=== PATIENT | male | born 2000 | race African-American/Black ===

== ENCOUNTER 2019-03-31 20:26 | Emergency (ER) | payer BC, SELFPAY ==
[2019-03-31 20:56] LABS: Absolute Lymphocytes (CBC) 2.9 K/uL (0.7-4.9); Absolute Monocytes 0.5 K/uL (0.1-1.3); Absolute Neutrophil 3.3 K/uL (1.8-8.0); Basophils % 0.8 % (0-1.3); Eosinophils % 0.9 % (0-4.4); Hematocrit 46.6 % (39.6-49.0); Lymphocytes % 41.9 % (15.3-44.8); MPV 9.5 fL (7.6-11.3); Monocytes % 7.8 % (3.3-12.3); RBC Red Blood Cell Count 5.27 M/uL (4.33-5.43)
[2019-03-31 21:08] LABS: BUN Blood Urea Nitrogen 9 mg/dL (7-18); Bicarbonate 21 mmol/L (21-32); Glucose Level 122 mg/dL (74-106); Potassium 3.4 mmol/L (3.5-5.1); Sodium Level 138 mmol/L (136-145)
[2019-03-31] MEDS ORDERED: HYDROCODONE/APAP 10/325 TAB ONE (21:57)
[2019-03-31] MEDS ORDERED: TETANUS & DIPHTHERIA TOX,ADULT 0.5 ML VIAL ONE (21:57)
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
[2019-04-01] MEDS ORDERED: FENTANYL CITR 100 MCG/2 ML ONE (00:46)
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
== END 2019-03-31 23:01 | disposition home or self-care (01) ==
LOC: ER 20:26
DX: S71.131A Puncture wound without foreign body, right thigh, initial encounter (principal); X95.9XXA Assault by unspecified firearm discharge, initial encounter; Y93.9 Activity, unspecified; Y92.9 Unspecified place or not applicable; Z23 Encounter for immunization; Z72.0 Tobacco use
CPT/HCPCS: 36415; 73706; 80048; 85025; 86850; 86900; 86901; 90471; 90714; 99291; 99292; J3010; Q9967